=== PATIENT | female | born 1995 | race Caucasian/White ===

== ENCOUNTER → 2016-10-10 | Outpatient (REF) | payer OTHER | LOC: M LAB REF 16:27 | PROVIDERS: ATTEND Physician Assistant | DX: N39.0 Urinary tract infection, site not specified (principal) ==

== ENCOUNTER → 2017-03-20 | Outpatient (REF) | payer OTHER | LOC: M LAB REF 17:11 | PROVIDERS: ATTEND Physician Assistant Medical | DX: J02.9 Acute pharyngitis, unspecified (principal); Z72.51 High risk heterosexual behavior ==

== ENCOUNTER → 2017-05-25 | Outpatient (REF) | payer OTHER ==
[~2017-05-25] MED LIST: CETI10CH PO; FLUTISP; GABA-283 PO
== END ==
LOC: M LAB REF 17:00
PROVIDERS: ATTEND Advanced Practice Midwife
DX: Z11.3 Encounter for screening for infections with a predominantly sexual mode of transmission (principal)

== ENCOUNTER 2017-06-18 20:03 | Emergency (ER) | payer BC, OTHER ==
[~2017-06-18] VITALS: Ht 175.3 cm; Wt 86.4 kg
[2017-06-18] MEDS ORDERED: FLUTISP (20:15)
[2017-06-18] MEDS ORDERED: GABA-283 PO (20:15)
[2017-06-18] MEDS ORDERED: CETI10CH PO (20:15)
[2017-06-18] MEDS ORDERED: NS 1,000 ML IV ONE (21:15)
[2017-06-18 21:38] LABS: BASO # 0.1 K/mm3 (0.0-0.2); BASO % 0.9 % (0.0-1.0); EOS # 0.4 K/mm3 (0.0-0.50); EOS % 5.2 % (0.0-3.0); LARGE UNSTAINED CELL # 0.2 K/mm3 (0.0-0.4); LYMPH # 2.6 K/mm3 (1.5-6.5); LYMPH % 32.5 % (24.0-44.0); MEAN CORPUSCULAR HEMOGLOBIN 30.8 pg (27.0-33.0); MEAN CORPUSCULAR HGB CONC 34.5 g/dl (32.0-36.5); MEAN CORPUSCULAR VOLUME 89.3 fl (80.0-96.0); MONO # 0.5 K/mm3 (0.0-0.8); MONO % 6.6 % (0.0-5.0); NEUTROPHILS % 52.8 % (36.0-66.0); PLATELET COUNT, AUTOMATED 233 k/mm3 (150-450); RED CELL DISTRIBUTION WIDTH 12.2 % (11.5-14.5); WHITE BLOOD COUNT 7.5 K/mm3 (4.0-10.0)
[2017-06-18 21:45] LABS: INR 1.01
[2017-06-18 21:50] LABS: CONTROL LINE UCG INT CTR LINE PRESENT
[2017-06-18 21:52] LABS: CONTROL LINE HCG INT CTR LINE PRESENT
[2017-06-18 22:03] LABS: ALBUMIN 3.8 GM/DL (3.2-5.2); ALBUMIN/GLOBULIN RATIO 0.93 (1.00-1.93); ALKALINE PHOSPHATASE 54 U/L (45-117); ALT/SGPT 25 U/L (12-78); ANION GAP 4 MEQ/L (8-16); BILIRUBIN,DIRECT 0.1 MG/DL (0.0-0.2); BILIRUBIN,TOTAL 0.5 MG/DL (0.2-1.0); BLOOD UREA NITROGEN 8 MG/DL (7-18); CALCIUM LEVEL 8.6 MG/DL (8.5-10.1); CARBON DIOXIDE LEVEL 29 MEQ/L (21-32); CHLORIDE LEVEL 105 MEQ/L (98-107); CREATININE FOR GFR 0.67 MG/DL (0.55-1.02); FREE T4 1.03 NG/DL (0.76-1.46); GLOMERULAR FILTRATION RATE > 60.0 (>60); GLUCOSE, FASTING 86 MG/DL (70-105); POTASSIUM SERUM 3.4 MEQ/L (3.5-5.1); SODIUM LEVEL 138 MEQ/L (136-145); TOTAL PROTEIN 7.9 GM/DL (6.4-8.2)
[2017-06-18 22:09] LABS: AST/SGOT 20 U/L (15-37)
[2017-06-18] MEDS ORDERED: ONDANSETRON 4MG/2ML VIAL (J2405) IV ONE (22:15)
[2017-06-18] MEDS ORDERED: MORPHINE 4 MG/ML 1ML SYRINGE IV ONE (22:15)
[2017-06-18] MEDS ORDERED: diphenhydrAMINE INJ 50MG/ML VIAL (J1200) IV STA (22:50)
[2017-06-18] MEDS ORDERED: ISOVUE-370 76% 100ML VIAL (Q9967) As Ordered ONE (23:07)
--- NOTE | 2017-06-18 23:40 | REPUSA ---
CT angiogram of the chest Clinical statement: Chest pain and shortness of breath. Technique: Multiple axial CT images were obtained from the thoracic inlet through the upper abdomen a fter a bolus administration of nonionic intravenous contrast. Coronal and sagittal reconstructions we re also obtained. No comparison is available. Findings: The pulmonary arteries are well-opacified with contrast, with no intraluminal filling defec ts to suggest embolism. The thoracic aorta is unremarkable. Thyroid gland is within normal limits. Th ere is no thoracic lymphadenopathy. There are no pericardial or pleural effusions. The lungs are van r. Limited imaging of the upper abdomen is unremarkable. There are no suspicious osseous lesions. Impression: Unremarkable CT examination of the chest. No evidence of pulmonary embolism.
[2017-06-19] MEDS ORDERED: NORCO 5/325MG TABLET (BULK FOR ED) PO ONE
[2017-06-19 00:03] VITALS: BP 136/72
--- NOTE | 2017-06-19 05:52 | ECGEPIP ---
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 RBBB NO PRIORS Electronically Signed On 06-19-2017 5:52:50 EDT by Miguel Driscoll
--- NOTE | 2017-06-19 07:41 | REP ---
PA and lateral chest: There are no comparisons. The lung oquendo are clear. The cardiac size is normal The herson, mediastinum, and bony thorax are unremarkable. Impression: Negative PA and lateral chest. Signed by Hardik Wetzel MD 06/19/2017 07:32 A
== END 2017-06-19 00:05 | disposition home or self-care (01) ==
LOC: M ED 20:03
DX: R07.89 Other chest pain (principal); R06.02 Shortness of breath
CPT/HCPCS: 36415; 71020; 71275; 80048; 80076; 81001; 82550; 82553; 83690; 84439; 84443; 84703; 85025; 85379; 85610; 85730; 93005; 96374; 96375; 99284; J1200; J2405; Q9967

== ENCOUNTER → 2017-08-15 | Outpatient (REF) | payer OTHER | LOC: M LAB REF 17:56 | PROVIDERS: ATTEND Advanced Practice Midwife | DX: Z12.4 Encounter for screening for malignant neoplasm of cervix (principal) ==

== ENCOUNTER 2017-11-24 14:56 | Day surgery (SDC) | payer OTHER ==
[2017-11-24 16:50] LABS: KETONE, URINE AUTO RFX NEGATIVE (NEGATIVE); NITRITE, URINE AUTO RFX NEGATIVE (NEGATIVE); RBC, URINE AUTO RFX 6 /HPF (0-3); SPECIFIC GRAVITY UR AUTO RFX 1.004 (1.002-1.035); SQUAM EPITHELIAL CELL UR AURFX 1 /HPF (0-6)
[2017-11-24 16:57] LABS: LEUKOCYTE ESTERASE UR AUTO RFX 3+ (NEGATIVE); WBC, URINE AUTO RFX 29 /HPF (0-3)
[2017-11-24 16:58] LABS: BASO # 0.1 10^3/uL (0.0-0.2); BASO % 0.4 % (0.0-1.0); EOS # 0.1 10^3/uL (0.0-0.50); EOS % 0.3 % (0.0-3.0); HEMATOCRIT 39.5 % (36.0-47.0); HEMOGLOBIN 13.5 g/dl (12.0-16.0); IMMATURE GRANULOCYTE % 0.6 % (0-3.0); LYMPH # 1.7 10^3/uL (1.5-6.5); LYMPH % 8.9 % (24.0-44.0); MEAN CORPUSCULAR HEMOGLOBIN 30.4 pg (27.0-33.0); MEAN CORPUSCULAR HGB CONC 34.2 g/dl (32.0-36.5); MONO # 1.4 10^3/uL (0.0-0.8); MONO % 7.4 % (0.0-5.0); NEUTROPHILS # 15.5 10^3/uL (1.8-7.7); NEUTROPHILS % 82.4 % (36.0-66.0); PLATELET COUNT, AUTOMATED 248 10^3/uL (150-450); RED BLOOD COUNT 4.44 10^6/uL (4.00-5.40); RED CELL DISTRIBUTION WIDTH 12.3 % (11.5-14.5); WHITE BLOOD COUNT 18.8 10^3/uL (4.0-10.0)
[2017-11-24] MEDS: NS 1,000 ML IV (17:02)
[2017-11-24] MEDS: ONDANSETRON 4MG/2ML VIAL (J2405) IV ×2 (17:02→18:58)
[2017-11-24] MEDS: MORPHINE 4 MG/ML 1ML VIAL (J2270) IV (17:05)
[2017-11-24 17:21] LABS: CONTROL LINE HCG INT CTR LINE PRESENT; HCG, SERUM QUALITATIVE NEGATIVE (NEGATIVE)
[2017-11-24 17:29] LABS: ALBUMIN 3.8 GM/DL (3.2-5.2); ALKALINE PHOSPHATASE 62 U/L (45-117); ALT/SGPT 17 U/L (12-78); AMYLASE 38 U/L (25-115); ANION GAP 8 MEQ/L (8-16); AST/SGOT 14 U/L (7-37); BILIRUBIN,DIRECT 0.3 MG/DL (0.0-0.2); BLOOD UREA NITROGEN 8 MG/DL (7-18); CALCIUM LEVEL 8.2 MG/DL (8.5-10.1); CARBON DIOXIDE LEVEL 25 MEQ/L (21-32); CHLORIDE LEVEL 106 MEQ/L (98-107); CREATININE FOR GFR 0.74 MG/DL (0.55-1.30); GLOMERULAR FILTRATION RATE > 60.0 (>60); GLUCOSE, FASTING 84 MG/DL (70-100); LIPASE 68 U/L (73-393); POTASSIUM SERUM 3.7 MEQ/L (3.5-5.1); SODIUM LEVEL 139 MEQ/L (136-145); TOTAL PROTEIN 7.6 GM/DL (6.4-8.2)
[2017-11-24] MEDS ORDERED: ISOVUE-370 76% 100ML VIAL (Q9967) As Ordered (17:31)
[2017-11-24] MEDS: HYDROmorphone HCL 1 MG/ML SYRINGE (J1170) IV ×2 (19:01→20:52)
[2017-11-24] MEDS: LR 1,000 ML IV ×2 (20:52→23:15)
[2017-11-24] MEDS ORDERED: ZOSYN 3.375 GM VIAL (J2543) As Ordered (21:49)
[2017-11-24] MEDS ORDERED: SUCCINYLCHOLINE 100 MG/5 ML SYRINGE (J0330) As Ordered (21:50)
[2017-11-24] MEDS ORDERED: PROPOFOL 200 MG/20 ML VIAL As Ordered (21:50)
[2017-11-24] MEDS ORDERED: LIDOCAINE 2% INJ 100 MG/5 ML SDV (FOR ANES.) As Ordered (21:50)
[2017-11-24] MEDS ORDERED: ONDANSETRON 4MG/2ML VIAL (J2405) As Ordered (21:50)
[2017-11-24] MEDS ORDERED: ROCURONIUM BROMIDE 50 MG/5 ML VIAL As Ordered (21:50)
[2017-11-24] MEDS ORDERED: MIDAZOLAM INJ 2 MG/2 ML VIAL (J2250) As Ordered (21:51)
[2017-11-24] MEDS ORDERED: fentaNYL 250 MCG/5 ML INJECTION (J3010) As Ordered (21:51)
[2017-11-24] MEDS ORDERED: KETOROLAC 60 MG/2 ML VIAL (J1885) As Ordered (21:57)
[2017-11-24] MEDS ORDERED: METOCLOPRAMIDE INJ 10MG/2ML VIAL (J2765) As Ordered (21:57)
[2017-11-24] MEDS ORDERED: ACETAMINOPHEN TAB 650MG DOSE (2X325MG) PO (22:00)
[2017-11-24] MEDS ORDERED: ONDANSETRON 4MG/2ML VIAL (J2405) IV ×2 (22:00→23:15)
[2017-11-24] MEDS: BUPIVACAINE/EPIN 0.5% 30 ML VIAL As Ordered (22:28)
[2017-11-24] MEDS ORDERED: NEOSTIGMINE 10 MG/10 ML VIAL (J2710) As Ordered (22:32)
[2017-11-24] MEDS ORDERED: GLYCOPYRROLATE INJ 0.2 MG/ML 2 ML VIAL As Ordered (22:32)
[2017-11-24] MEDS ORDERED: PERCOCET 5MG/325MG TAB As Ordered (23:05)
[2017-11-24] MEDS: PERCOCET 5MG/325MG TAB PO ×2 (23:07→23:39)
[2017-11-24] MEDS ORDERED: fentaNYL 100 MCG/2 ML INJECTION (J3010) IV (23:15)
[2017-11-24] MEDS ORDERED: METOCLOPRAMIDE INJ 10MG/2ML VIAL (J2765) IV (23:15)
[2017-11-24] MEDS ORDERED: MEPERIDINE INJ 25 MG/ML VIAL (J2175) As Ordered (23:17)
[2017-11-24] MEDS: MEPERIDINE INJ 25 MG/ML VIAL (J2175) IV ×2 (23:20→23:35)
[2017-11-25] MEDS: MORPHINE 4 MG/ML 1ML VIAL (J2270) IV (01:38)
[2017-11-25] MEDS: NORCO, ANEXSIA 5/325MG TABLET (HYDROcodone/ACETAMINOPHEN) PO ×2 (04:00→10:35)
[2017-11-25] MEDS: PIPERACILLIN/TAZOBACTAM SOD 3.375 GM in APPROPRIATE DILUENT 1 EA IV ×2 (04:00→10:00)
[2017-11-25] MEDS ORDERED: HEPARIN SOD (PORCINE) 5000 UNITS/ML VIAL As Ordered (06:22)
[2017-11-25] MEDS: LR 1,000 ML IV (06:39)
[2017-11-25] MEDS: HEPARIN SOD (PORCINE) 5000 UNITS/ML VIAL SC (06:39)
[2017-11-25 06:52] LABS: HEMATOCRIT 32.5 % (36.0-47.0); MEAN CORPUSCULAR HEMOGLOBIN 30.9 pg (27.0-33.0); MEAN CORPUSCULAR HGB CONC 34.5 g/dl (32.0-36.5); MEAN CORPUSCULAR VOLUME 89.8 fl (80.0-96.0); PLATELET COUNT, AUTOMATED 227 10^3/uL (150-450); RED BLOOD COUNT 3.62 10^6/uL (4.00-5.40); RED CELL DISTRIBUTION WIDTH 12.7 % (11.5-14.5); WHITE BLOOD COUNT 16.2 10^3/uL (4.0-10.0)
[2017-11-25 07:01] LABS: HEMOGLOBIN 11.2 g/dl (12.0-16.0)
[2017-11-25] MEDS: KETOROLAC 30 MG/ML VIAL (J1885) IV (08:19)
[2017-11-25] MEDS: SENOKOT S TAB PO (08:19)
== END 2017-11-25 10:25 | disposition home or self-care (01) ==
LOC: M SDC 11-25 10:25 → M ED 14:56 → M SDC 19:50 → M PED 23:50
DX: K35.80 Unspecified acute appendicitis (principal); E66.9 Obesity, unspecified; Z88.8 Allergy status to other drugs, medicaments and biological substances; Z79.899 Other long term (current) drug therapy; Z86.718 Personal history of other venous thrombosis and embolism
CPT/HCPCS: 44970

== ENCOUNTER 2017-11-27 16:45 | Emergency (ER) | payer BC, OTHER ==
[2017-11-27 17:18] LABS: KETONE, URINE AUTO RFX NEGATIVE (NEGATIVE); LEUKOCYTE ESTERASE UR AUTO RFX NEGATIVE (NEGATIVE); NITRITE, URINE AUTO RFX NEGATIVE (NEGATIVE); RBC, URINE AUTO RFX 7 /HPF (0-3); SPECIFIC GRAVITY UR AUTO RFX 1.005 (1.002-1.035); SQUAM EPITHELIAL CELL UR AURFX 1 /HPF (0-6); WBC, URINE AUTO RFX 0 /HPF (0-3)
[2017-11-27] MEDS: MORPHINE 2 MG/ML 1ML SYRINGE (J2270) IV (18:19)
[2017-11-27] MEDS: NS 1,000 ML IV (18:19)
[2017-11-27 18:36] LABS: BASO % 0.5 % (0.0-1.0); EOS # 0.2 10^3/uL (0.0-0.50); HEMATOCRIT 34.8 % (36.0-47.0); IMMATURE GRANULOCYTE % 0.2 % (0-3.0); LYMPH # 1.3 10^3/uL (1.5-6.5); LYMPH % 21.4 % (24.0-44.0); MEAN CORPUSCULAR HEMOGLOBIN 30.5 pg (27.0-33.0); MEAN CORPUSCULAR HGB CONC 34.5 g/dl (32.0-36.5); MEAN CORPUSCULAR VOLUME 88.5 fl (80.0-96.0); MONO # 0.5 10^3/uL (0.0-0.8); MONO % 8.9 % (0.0-5.0); PLATELET COUNT, AUTOMATED 295 10^3/uL (150-450); RED BLOOD COUNT 3.93 10^6/uL (4.00-5.40); RED CELL DISTRIBUTION WIDTH 12.3 % (11.5-14.5); WHITE BLOOD COUNT 6.1 10^3/uL (4.0-10.0)
[2017-11-27 18:57] LABS: CONTROL LINE UCG INT CTR LINE PRESENT; ERYTHROCYTE SEDIMENTATION RATE 59 mm/hr (0-20); URINE PREG TEST NEGATIVE (NEGATIVE)
[2017-11-27 18:59] LABS: LACTIC ACID SEPSIS PROTOCOL 0.7 MMOL/L (0.4-2.0)
[2017-11-27 19:00] LABS: ALBUMIN 3.4 GM/DL (3.2-5.2); ALBUMIN/GLOBULIN RATIO 0.92 (1.00-1.93); ALKALINE PHOSPHATASE 55 U/L (45-117); ALT/SGPT 20 U/L (12-78); AMYLASE 34 U/L (25-115); ANION GAP 7 MEQ/L (8-16); AST/SGOT 18 U/L (7-37); BILIRUBIN,DIRECT 0.1 MG/DL (0.0-0.2); BILIRUBIN,TOTAL 0.3 MG/DL (0.2-1.0); BLOOD UREA NITROGEN 8 MG/DL (7-18); C REACTIVE PROTEIN QUANTITATIV 5.69 MG/DL (0.00-0.30); CALCIUM LEVEL 8.2 MG/DL (8.5-10.1); CARBON DIOXIDE LEVEL 27 MEQ/L (21-32); CHLORIDE LEVEL 104 MEQ/L (98-107); CPK CREATINE PHOSPHOKINASE 72 U/L (26-192); CREATININE FOR GFR 0.67 MG/DL (0.55-1.30); GLOMERULAR FILTRATION RATE > 60.0 (>60); GLUCOSE, FASTING 103 MG/DL (70-100); LIPASE 79 U/L (73-393); POTASSIUM SERUM 3.7 MEQ/L (3.5-5.1); SODIUM LEVEL 138 MEQ/L (136-145); TOTAL PROTEIN 7.1 GM/DL (6.4-8.2); TROPONIN I < 0.02 NG/ML (< 0.10)
[2017-11-27 19:06] LABS: MB/CK RELATIVE INDEX 1.38 (< OR =4); THYROID STIMULATING HORMONE 0.961 uIU/ML (0.358-3.740)
[2017-11-27] MEDS ORDERED: ISOVUE-370 76% 100ML VIAL (Q9967) As Ordered (19:08)
[2017-11-27] MEDS: METOCLOPRAMIDE INJ 10MG/2ML VIAL (J2765) IV (20:51)
[2017-11-27] MEDS: KETOROLAC 30 MG/ML VIAL (J1885) IV (20:52)
[2017-11-27] MEDS: diphenhydrAMINE INJ 50MG/ML VIAL (J1200) IV (20:52)
== END 2017-11-27 21:41 | disposition home or self-care (01) ==
LOC: M ED 16:45
DX: G89.18 Other acute postprocedural pain (principal); R10.9 Unspecified abdominal pain; Z90.89 Acquired absence of other organs; Z79.899 Other long term (current) drug therapy; Z91.89 Other specified personal risk factors, not elsewhere classified; Z88.1 Allergy status to other antibiotic agents
CPT/HCPCS: J1200

== ENCOUNTER 2018-01-11 22:07 | Emergency (ER) | payer BC, OTHER ==
[2018-01-11] MEDS ORDERED: NS 1,000 ML IV (23:15)
[2018-01-11] MEDS: dexameTHASONE 4 MG/ML 1ML VIAL (J1100) IM (23:30)
== END 2018-01-11 23:57 | disposition home or self-care (01) ==
LOC: M ED 22:07
DX: L29.9 Pruritus, unspecified (principal); F41.9 Anxiety disorder, unspecified; N83.209 Unspecified ovarian cyst, unspecified side
CPT/HCPCS: J1100

== ENCOUNTER 2018-03-01 03:36 | Inpatient (IN) | payer BC, OTHER ==
[2018-03-01] MEDS ORDERED: CHARCOAL ACTIVATED LIQUID 25 GM/120 ML BTL As Ordered (03:54)
[2018-03-01] MEDS: CHARCOAL ACTIVATED LIQUID 25 GM/120 ML BTL PO (04:02)
[2018-03-01 04:04] LABS: BASO # 0.1 10^3/uL (0.0-0.2); BASO % 0.7 % (0.0-1.0); EOS # 0.3 10^3/uL (0.0-0.50); EOS % 4.7 % (0.0-3.0); HEMATOCRIT 38.6 % (36.0-47.0); HEMOGLOBIN 13.1 g/dl (12.0-15.5); IMMATURE GRANULOCYTE % 0.1 % (0-3.0); LYMPH # 2.3 10^3/uL (1.5-6.5); LYMPH % 32.9 % (24.0-44.0); MEAN CORPUSCULAR HEMOGLOBIN 30.3 pg (27.0-33.0); MEAN CORPUSCULAR HGB CONC 33.9 g/dl (32.0-36.5); MEAN CORPUSCULAR VOLUME 89.4 fl (80.0-96.0); MONO # 0.7 10^3/uL (0.0-0.8); MONO % 9.7 % (0.0-5.0); NEUTROPHILS # 3.7 10^3/uL (1.8-7.7); NEUTROPHILS % 51.9 % (36.0-66.0); PLATELET COUNT, AUTOMATED 232 10^3/uL (150-450); RED BLOOD COUNT 4.32 10^6/uL (4.00-5.40); RED CELL DISTRIBUTION WIDTH 12.5 % (11.5-14.5)
[2018-03-01 04:36] LABS: ALBUMIN 3.7 GM/DL (3.2-5.2); ALKALINE PHOSPHATASE 63 U/L (45-117); ALT/SGPT 19 U/L (12-78); ANION GAP 5 MEQ/L (8-16); AST/SGOT 23 U/L (7-37); BILIRUBIN,DIRECT < 0.1 MG/DL (0.0-0.2); BILIRUBIN,TOTAL 0.3 MG/DL (0.2-1.0); BLOOD UREA NITROGEN 10 MG/DL (7-18); CALCIUM LEVEL 8.2 MG/DL (8.5-10.1); CARBON DIOXIDE LEVEL 28 MEQ/L (21-32); CHLORIDE LEVEL 106 MEQ/L (98-107); CPK CREATINE PHOSPHOKINASE 128 U/L (26-192); CREATININE FOR GFR 0.61 MG/DL (0.55-1.30); ETHYL ALCOHOL (ETHANOL) 0.004 % (0.000-0.010); GLOMERULAR FILTRATION RATE > 60.0 (>60); GLUCOSE, FASTING 92 MG/DL (70-100); POTASSIUM SERUM 4.1 MEQ/L (3.5-5.1); SALICYLATE LEVEL < 1.7 MG/DL (5.0-30.0); SODIUM LEVEL 139 MEQ/L (136-145); TOTAL PROTEIN 7.4 GM/DL (6.4-8.2)
[2018-03-01 04:51] LABS: ACETAMINOPHEN LEVEL < 2.0 UG/ML (10.0-30.0)
[2018-03-01 07:13] LABS: AMPHETAMINES LEVEL URINE NEGATIVE (NEGATIVE); BARBITURATES URINE NEGATIVE (NEGATIVE); BENZODIAZEPINES URINE POSITIVE (NEGATIVE); CANNABINOIDS URINE NEGATIVE (NEGATIVE); COCAINE METABOLITE URINE NEGATIVE (NEGATIVE); METHADONE URINE NEGATIVE (NEGATIVE); OPIATES URINE NEGATIVE (NEGATIVE); PHENCYCLIDINE URINE NEGATIVE (NEGATIVE)
[2018-03-01] MEDS ORDERED: MAALOX 30 ML SUSP *UDC PO (12:15)
[2018-03-01 13:01] LABS: CONTROL LINE HCG INT CTR LINE PRESENT; HCG, SERUM QUALITATIVE NEGATIVE (NEGATIVE)
[2018-03-01] MEDS: IBUPROFEN 400 MG TAB PO (20:27)
[2018-03-01] MEDS: RAMELTEON 8 MG TAB (ROZEREM) PO (21:00)
[2018-03-01] MEDS: ONDANSETRON 4 MG ORAL DISINTEGRATING TAB (Q0162 PER 1MG) PO (21:17)
[2018-03-02] MEDS: EXCEDRIN MIGRAINE TABLET PO (10:30)
[2018-03-02] MEDS: RIZATRIPTAN BENZOATE 10 MG TAB PO (11:35)
[2018-03-02] MEDS: FLUoxetine 20 MG CAP PO (16:19)
[2018-03-02] MEDS: diphenhydrAMINE CREAM 30GM TOP (18:21)
[2018-03-02] MEDS: IBUPROFEN 400 MG TAB PO (19:47)
[2018-03-02] MEDS: RAMELTEON 8 MG TAB (ROZEREM) PO (21:52)
[2018-03-02] MEDS: clonazePAM 0.5 MG TAB PO (21:52)
[2018-03-03] MEDS: IBUPROFEN 400 MG TAB PO ×3 (05:14→22:00)
[2018-03-03] MEDS: RIZATRIPTAN BENZOATE 10 MG TAB PO ×3 (05:15→20:05)
[2018-03-03 06:12] LABS: FREE THYROXINE INDEX 2.4 % (1.3-4.8); T UPTAKE 35 % (30-39); THYROXINE (T4) 6.8 UG/DL (4.5-12.0)
[2018-03-03] MEDS: FLUoxetine 20 MG CAP PO (08:50)
[2018-03-03] MEDS: clonazePAM 0.5 MG TAB PO ×2 (08:50→20:05)
[2018-03-03] MEDS: EXCEDRIN MIGRAINE TABLET PO ×2 (08:52→17:12)
[2018-03-03] MEDS: QUEtiapine FUMARATE 25 MG TAB PO (21:57)
[2018-03-04] MEDS: IBUPROFEN 400 MG TAB PO (05:30)
[2018-03-04] MEDS: clonazePAM 0.5 MG TAB PO ×2 (08:01→20:38)
[2018-03-04] MEDS: FLUoxetine 20 MG CAP PO (08:01)
[2018-03-04] MEDS: RIZATRIPTAN BENZOATE 10 MG TAB PO ×2 (08:02→20:39)
[2018-03-04] MEDS: EXCEDRIN MIGRAINE TABLET PO ×2 (08:03→15:05)
[2018-03-04] MEDS: MELOXICAM (MOBIC) 7.5 MG TAB PO (10:15)
[2018-03-04] MEDS: LIDOCAINE 5% (LIDODERM) PATCH TD (14:35)
[2018-03-04] MEDS: ACETAMINOPHEN TAB 650MG DOSE (2X325MG) PO ×2 (15:05→22:08)
[2018-03-04] MEDS: MOM 30ML SUSPENSION UDC PO (15:07)
[2018-03-04] MEDS: GABAPENTIN 100 MG CAP PO (20:38)
[2018-03-04] MEDS: QUEtiapine FUMARATE 25 MG TAB PO (22:05)
[2018-03-04] MEDS: **NOTE PATIENT COMMENT** MISC XX (22:05)
[2018-03-05] MEDS: LIDOCAINE 5% (LIDODERM) PATCH TD (08:48)
[2018-03-05] MEDS: FLUoxetine 20 MG CAP PO (08:48)
[2018-03-05] MEDS: GABAPENTIN 100 MG CAP PO (08:49)
[2018-03-05] MEDS: clonazePAM 0.5 MG TAB PO ×2 (08:49→20:48)
[2018-03-05] MEDS: MELOXICAM (MOBIC) 7.5 MG TAB PO (08:49)
[2018-03-05] MEDS: RIZATRIPTAN BENZOATE 10 MG TAB PO (11:26)
[2018-03-05 14:30] LABS: HEMATOCRIT 41.6 % (36.0-47.0); HEMOGLOBIN 13.1 g/dl (12.0-15.5); MEAN CORPUSCULAR HEMOGLOBIN 30.3 pg (27.0-33.0); MEAN CORPUSCULAR HGB CONC 31.5 g/dl (32.0-36.5); MEAN CORPUSCULAR VOLUME 96.1 fl (80.0-96.0); PLATELET COUNT, AUTOMATED 162 10^3/uL (150-450); RED BLOOD COUNT 4.33 10^6/uL (4.00-5.40); RED CELL DISTRIBUTION WIDTH 12.2 % (11.5-14.5); WHITE BLOOD COUNT 4.4 10^3/uL (4.0-10.0)
[2018-03-05 14:47] LABS: ALBUMIN 3.9 GM/DL (3.2-5.2); ALBUMIN/GLOBULIN RATIO 1.15 (1.00-1.93); ALKALINE PHOSPHATASE 60 U/L (45-117); ALT/SGPT 21 U/L (12-78); ANION GAP 5 MEQ/L (8-16); AST/SGOT 18 U/L (7-37); BILIRUBIN,TOTAL 0.3 MG/DL (0.2-1.0); BLOOD UREA NITROGEN 8 MG/DL (7-18); CALCIUM LEVEL 8.6 MG/DL (8.5-10.1); CARBON DIOXIDE LEVEL 29 MEQ/L (21-32); CHLORIDE LEVEL 107 MEQ/L (98-107); CREATININE FOR GFR 0.63 MG/DL (0.55-1.30); GLOMERULAR FILTRATION RATE > 60.0 (>60); GLUCOSE, FASTING 96 MG/DL (70-100); SODIUM LEVEL 141 MEQ/L (136-145); TOTAL PROTEIN 7.3 GM/DL (6.4-8.2)
[2018-03-05 14:52] LABS: PROLACTIN 9.6 NG/ML
[2018-03-05] MEDS: EXCEDRIN MIGRAINE TABLET PO (15:48)
[2018-03-05] MEDS: ONDANSETRON 4 MG ORAL DISINTEGRATING TAB (Q0162 PER 1MG) PO (17:59)
[2018-03-05] MEDS: QUEtiapine FUMARATE 25 MG TAB PO (20:48)
[2018-03-05] MEDS: ACETAMINOPHEN TAB 650MG DOSE (2X325MG) PO (20:49)
[2018-03-05] MEDS: **NOTE PATIENT COMMENT** MISC XX (21:00)
[2018-03-06] MEDS: traZODone 50 MG TAB PO (01:51)
[2018-03-06] MEDS: ACETAMINOPHEN TAB 650MG DOSE (2X325MG) PO (05:04)
[2018-03-06] MEDS: MELOXICAM (MOBIC) 7.5 MG TAB PO (09:10)
[2018-03-06] MEDS: LIDOCAINE 5% (LIDODERM) PATCH TD (09:10)
[2018-03-06] MEDS: clonazePAM 0.5 MG TAB PO (09:10)
[2018-03-06] MEDS: FLUoxetine 20 MG CAP PO (09:10)
== END 2018-03-06 15:20 | disposition home or self-care (01) | DRG 751 ==
LOC: M ED 03:36 → M ED INP 12:10 → M PSY 13:31
DX: F33.2 Major depressive disorder, recurrent severe without psychotic features (principal); F41.0 Panic disorder [episodic paroxysmal anxiety]; F41.1 Generalized anxiety disorder; M25.572 Pain in left ankle and joints of left foot; G43.909 Migraine, unspecified, not intractable, without status migrainosus; R94.6 Abnormal results of thyroid function studies; Z88.1 Allergy status to other antibiotic agents; Z91.048 Other nonmedicinal substance allergy status; Z79.899 Other long term (current) drug therapy; W01.190A Fall on same level from slipping, tripping and stumbling with subsequent striking against furniture, initial encounter; Y92.239 Unspecified place in hospital as the place of occurrence of the external cause; Y93.01 Activity, walking, marching and hiking; Z91.5 Personal history of self-harm

== ENCOUNTER 2018-03-12 13:48 | Emergency (ER) | payer OTHER, BC ==
[2018-03-12] MEDS: diphenhydrAMINE INJ 50MG/ML VIAL (J1200) IV (15:44)
[2018-03-12] MEDS: NS 1,000 ML IV (15:44)
[2018-03-12] MEDS: KETOROLAC 30 MG/ML VIAL (J1885) IV (15:44)
[2018-03-12] MEDS: METOCLOPRAMIDE INJ 10MG/2ML VIAL (J2765) IV (15:45)
[2018-03-12] MEDS: ACETAMINOPHEN 325 MG TAB PO (16:43)
== END 2018-03-12 18:00 | disposition home or self-care (01) ==
LOC: M ED 13:48
DX: S00.83XA Contusion of other part of head, initial encounter (principal); S16.1XXA Strain of muscle, fascia and tendon at neck level, initial encounter; W01.0XXA Fall on same level from slipping, tripping and stumbling without subsequent striking against object, initial encounter; Y92.59 Other trade areas as the place of occurrence of the external cause; Y99.0 Civilian activity done for income or pay; R55 Syncope and collapse; G43.909 Migraine, unspecified, not intractable, without status migrainosus; Z79.899 Other long term (current) drug therapy; Z88.1 Allergy status to other antibiotic agents; Z88.8 Allergy status to other drugs, medicaments and biological substances; Z91.048 Other nonmedicinal substance allergy status
CPT/HCPCS: J1200

== ENCOUNTER 2018-03-17 15:51 | Inpatient (IN) | payer BC, OTHER ==
[2018-03-17 16:24] LABS: BASO % 0.7 % (0.0-1.0); EOS # 0.3 10^3/uL (0.0-0.50); EOS % 4.7 % (0.0-3.0); HEMATOCRIT 38.3 % (36.0-47.0); HEMOGLOBIN 12.9 g/dl (12.0-15.5); IMMATURE GRANULOCYTE % 0.2 % (0-3.0); LYMPH # 1.6 10^3/uL (1.5-6.5); LYMPH % 28.6 % (24.0-44.0); MEAN CORPUSCULAR HEMOGLOBIN 29.8 pg (27.0-33.0); MEAN CORPUSCULAR HGB CONC 33.7 g/dl (32.0-36.5); MEAN CORPUSCULAR VOLUME 88.5 fl (80.0-96.0); MONO # 0.4 10^3/uL (0.0-0.8); MONO % 7.7 % (0.0-5.0); NEUTROPHILS # 3.3 10^3/uL (1.8-7.7); NEUTROPHILS % 58.1 % (36.0-66.0); PLATELET COUNT, AUTOMATED 241 10^3/uL (150-450); RED BLOOD COUNT 4.33 10^6/uL (4.00-5.40); RED CELL DISTRIBUTION WIDTH 12.2 % (11.5-14.5); WHITE BLOOD COUNT 5.7 10^3/uL (4.0-10.0)
[2018-03-17 16:28] LABS: VENOUS BASE EXCESS -3.3 (-2.0-2.0); VENOUS HCO3 21.5 MEQ/L (23.0-27.0); VENOUS O2 SATURATION 97.8 % (60.0-80.0); VENOUS PARTIAL PRESSURE CO2 37.9 mmHg (38.0-50.0); VENOUS PARTIAL PRESSURE O2 99.7 mmHg (30.0-50.0); VENOUS PH 7.372 UNITS (7.330-7.430); VENOUS STANDARD HCO3 21.8 MEQ/L; VENOUS TOTAL CO2 22.7 MEQ/L (24.0-28.0)
[2018-03-17] MEDS: NS 1,000 ML IV ×4 (16:38→19:00)
[2018-03-17] MEDS: CHARCOAL ACTIVATED LIQUID 25 GM/120 ML BTL PO (16:38)
[2018-03-17 16:45] LABS: OSMOLALITY SERUM 302 MOSM/KG (275-295)
[2018-03-17 16:48] LABS: CONTROL LINE HCG INT CTR LINE PRESENT; HCG, SERUM QUALITATIVE NEGATIVE (NEGATIVE)
[2018-03-17 16:52] LABS: LACTIC ACID SEPSIS PROTOCOL 3.8 MMOL/L (0.4-2.0)
[2018-03-17 17:03] LABS: ACETAMINOPHEN LEVEL 57.3 UG/ML (10.0-30.0); ALBUMIN 3.8 GM/DL (3.2-5.2); ALBUMIN/GLOBULIN RATIO 1.06 (1.00-1.93); ALKALINE PHOSPHATASE 56 U/L (45-117); ALT/SGPT 19 U/L (12-78); ANION GAP 11 MEQ/L (8-16); AST/SGOT 15 U/L (7-37); BILIRUBIN,DIRECT 0.1 MG/DL (0.0-0.2); BILIRUBIN,TOTAL 0.3 MG/DL (0.2-1.0); BLOOD UREA NITROGEN 10 MG/DL (7-18); CALCIUM LEVEL 8.3 MG/DL (8.5-10.1); CARBON DIOXIDE LEVEL 23 MEQ/L (21-32); CHLORIDE LEVEL 107 MEQ/L (98-107); CPK CREATINE PHOSPHOKINASE 98 U/L (26-192); CREATININE FOR GFR 0.79 MG/DL (0.55-1.30); ETHYL ALCOHOL (ETHANOL) < 0.003 % (0.000-0.010); GLOMERULAR FILTRATION RATE > 60.0 (>60); GLUCOSE, FASTING 77 MG/DL (70-100); POTASSIUM SERUM 3.7 MEQ/L (3.5-5.1); SALICYLATE LEVEL < 1.7 MG/DL (5.0-30.0); SODIUM LEVEL 141 MEQ/L (136-145); TOTAL PROTEIN 7.4 GM/DL (6.4-8.2)
[2018-03-17] MEDS: D5W IV ×3 (18:28→23:20)
[2018-03-17] MEDS: ACETYLCYSTEINE IV ×3 (18:28→23:20)
[2018-03-17 18:36] LABS: INR 1.06; PROTHROMBIN TIME 13.9 SECONDS (12.4-14.5)
[2018-03-17 18:56] LABS: AMPHETAMINES LEVEL URINE NEGATIVE (NEGATIVE); BARBITURATES URINE NEGATIVE (NEGATIVE); BENZODIAZEPINES URINE NEGATIVE (NEGATIVE); CANNABINOIDS URINE NEGATIVE (NEGATIVE); COCAINE METABOLITE URINE NEGATIVE (NEGATIVE); METHADONE URINE NEGATIVE (NEGATIVE); OPIATES URINE NEGATIVE (NEGATIVE); PHENCYCLIDINE URINE NEGATIVE (NEGATIVE)
[2018-03-17 19:39] LABS: ACETAMINOPHEN LEVEL 22.4 UG/ML (10.0-30.0)
[2018-03-17] MEDS: CHLORHEXIDINE ORAL RINSE 0.12%/15ML 120ML BOTTLE MT ×2 (21:00)
[2018-03-17 21:08] LABS: ACETAMINOPHEN LEVEL 15.8 UG/ML (10.0-30.0); ALBUMIN 2.9 GM/DL (3.2-5.2); ALBUMIN/GLOBULIN RATIO 0.94 (1.00-1.93); ALKALINE PHOSPHATASE 43 U/L (45-117); ALT/SGPT 22 U/L (12-78); AST/SGOT 11 U/L (7-37); BILIRUBIN,DIRECT < 0.1 MG/DL (0.0-0.2); BILIRUBIN,TOTAL 0.3 MG/DL (0.2-1.0)
[2018-03-18] MEDS: HEPARIN SOD (PORCINE) 5000 UNITS/ML VIAL SC ×3 (00:45→14:11)
[2018-03-18] MEDS: NS 1,000 ML IV ×2 (00:46→05:00)
[2018-03-18 00:50] LABS: ACETAMINOPHEN LEVEL 4.1 UG/ML (10.0-30.0); ALBUMIN 2.9 GM/DL (3.2-5.2); ALBUMIN/GLOBULIN RATIO 0.97 (1.00-1.93); ALKALINE PHOSPHATASE 40 U/L (45-117); ALT/SGPT 25 U/L (12-78); AST/SGOT 13 U/L (7-37); BILIRUBIN,DIRECT < 0.1 MG/DL (0.0-0.2); BILIRUBIN,TOTAL 0.3 MG/DL (0.2-1.0); TOTAL PROTEIN 5.9 GM/DL (6.4-8.2)
[2018-03-18 05:10] LABS: ACETAMINOPHEN LEVEL < 2.0 UG/ML (10.0-30.0); ALBUMIN 2.8 GM/DL (3.2-5.2); ALBUMIN/GLOBULIN RATIO 0.93 (1.00-1.93); ALKALINE PHOSPHATASE 39 U/L (45-117); ALT/SGPT 17 U/L (12-78); AST/SGOT 12 U/L (7-37); BILIRUBIN,DIRECT 0.1 MG/DL (0.0-0.2); BILIRUBIN,TOTAL 0.5 MG/DL (0.2-1.0); TOTAL PROTEIN 5.8 GM/DL (6.4-8.2)
[2018-03-18 08:33] LABS: HEMOGLOBIN 11.3 g/dl (12.0-15.5); MEAN CORPUSCULAR HEMOGLOBIN 30.3 pg (27.0-33.0); MEAN CORPUSCULAR HGB CONC 34.2 g/dl (32.0-36.5); MEAN CORPUSCULAR VOLUME 88.5 fl (80.0-96.0); PLATELET COUNT, AUTOMATED 190 10^3/uL (150-450); RED BLOOD COUNT 3.73 10^6/uL (4.00-5.40); RED CELL DISTRIBUTION WIDTH 12.6 % (11.5-14.5); WHITE BLOOD COUNT 3.7 10^3/uL (4.0-10.0)
[2018-03-18 08:42] LABS: ACETAMINOPHEN LEVEL < 2.0 UG/ML (10.0-30.0); ALBUMIN 2.9 GM/DL (3.2-5.2); ALKALINE PHOSPHATASE 40 U/L (45-117); ALT/SGPT 15 U/L (12-78); AST/SGOT 11 U/L (7-37); BILIRUBIN,DIRECT 0.1 MG/DL (0.0-0.2); BILIRUBIN,TOTAL 0.5 MG/DL (0.2-1.0); TOTAL PROTEIN 5.8 GM/DL (6.4-8.2)
[2018-03-18 08:52] LABS: PARTIAL THROMBOPLASTIN TIME 32.2 SECONDS (26.8-37.9)
[2018-03-18 08:57] LABS: ANION GAP 7 MEQ/L (8-16); BLOOD UREA NITROGEN 5 MG/DL (7-18); CALCIUM LEVEL 7.1 MG/DL (8.5-10.1); CARBON DIOXIDE LEVEL 23 MEQ/L (21-32); CHLORIDE LEVEL 113 MEQ/L (98-107); CREATININE FOR GFR 0.58 MG/DL (0.55-1.30); GLOMERULAR FILTRATION RATE > 60.0 (>60); GLUCOSE, FASTING 80 MG/DL (70-100); POTASSIUM SERUM 3.8 MEQ/L (3.5-5.1); SODIUM LEVEL 143 MEQ/L (136-145)
[2018-03-18] MEDS: CHLORHEXIDINE ORAL RINSE 0.12%/15ML 120ML BOTTLE MT (09:00)
[2018-03-18 09:17] LABS: INR 1.25; PROTHROMBIN TIME 15.9 SECONDS (12.4-14.5)
[2018-03-18] MEDS: METOCLOPRAMIDE INJ 10MG/2ML VIAL (J2765) IV (10:40)
[2018-03-18] MEDS: KETOROLAC 30 MG/ML VIAL (J1885) IV (10:40)
[2018-03-18] MEDS: RIZATRIPTAN BENZOATE 10 MG TAB PO (12:36)
[2018-03-18] MEDS: IBUPROFEN 400 MG TAB PO (19:45)
== END 2018-03-18 21:35 | DRG 812 ==
LOC: M ED 15:51 → M ED INP 18:31 → M ICU 19:26
DX: T39.1X4A Poisoning by 4-Aminophenol derivatives, undetermined, initial encounter (principal); F33.2 Major depressive disorder, recurrent severe without psychotic features; F41.1 Generalized anxiety disorder; F41.0 Panic disorder [episodic paroxysmal anxiety]; Z91.5 Personal history of self-harm; Z79.899 Other long term (current) drug therapy; Z91.048 Other nonmedicinal substance allergy status; Z88.1 Allergy status to other antibiotic agents

== ENCOUNTER 2018-03-18 21:34 | Inpatient (IN) | payer OTHER, BC ==
[~2018-03-18 21:34] MED LIST changes: +ACETAMINOPHEN TAB 650MG DOSE (2X325MG) PO; -CETI10CH PO; -FLUTISP; -GABA-283 PO; +IBUPROFEN 400 MG TAB PO; +RAMELTEON 8 MG TAB (ROZEREM) PO
[2018-03-18] MEDS ORDERED: LIDOCAINE 5% (LIDODERM) PATCH TD (22:45)
[2018-03-18] MEDS: QUEtiapine FUMARATE 25 MG TAB PO (23:17)
[2018-03-19] MEDS: CETIRIZINE (ZyrTEC) 10 MG TAB PO (09:43)
[2018-03-19] MEDS: SERTRALINE HCL 50 MG TAB PO (09:43)
[2018-03-19] MEDS: GABAPENTIN 100 MG CAP PO ×3 (09:43→21:13)
[2018-03-19] MEDS: MELOXICAM (MOBIC) 7.5 MG TAB PO ×2 (09:43→21:12)
[2018-03-19] MEDS: FLUTICASONE PROP 0.05% NASAL SPRAY 16 GM (FLONASE) (10:13)
[2018-03-19] MEDS: LIDOCAINE 5% (LIDODERM) PATCH TD (10:15)
[2018-03-19 10:17] LABS: HEMATOCRIT 34.3 % (36.0-47.0); HEMOGLOBIN 12.1 g/dl (12.0-15.5); MEAN CORPUSCULAR HEMOGLOBIN 30.7 pg (27.0-33.0); MEAN CORPUSCULAR HGB CONC 35.3 g/dl (32.0-36.5); MEAN CORPUSCULAR VOLUME 87.1 fl (80.0-96.0); PLATELET COUNT, AUTOMATED 246 10^3/uL (150-450); RED BLOOD COUNT 3.94 10^6/uL (4.00-5.40); RED CELL DISTRIBUTION WIDTH 12.1 % (11.5-14.5); WHITE BLOOD COUNT 6.6 10^3/uL (4.0-10.0)
[2018-03-19 11:37] LABS: ALBUMIN 3.7 GM/DL (3.2-5.2); ALBUMIN/GLOBULIN RATIO 1.16 (1.00-1.93); ALKALINE PHOSPHATASE 53 U/L (45-117); ALT/SGPT 21 U/L (12-78); ANION GAP 9 MEQ/L (8-16); AST/SGOT 16 U/L (7-37); BILIRUBIN,TOTAL 0.6 MG/DL (0.2-1.0); BLOOD UREA NITROGEN 8 MG/DL (7-18); CALCIUM LEVEL 8.5 MG/DL (8.5-10.1); CARBON DIOXIDE LEVEL 24 MEQ/L (21-32); CHLORIDE LEVEL 109 MEQ/L (98-107); CREATININE FOR GFR 0.63 MG/DL (0.55-1.30); GLOMERULAR FILTRATION RATE > 60.0 (>60); GLUCOSE, FASTING 86 MG/DL (70-100); LIPASE 145 U/L (73-393); SODIUM LEVEL 142 MEQ/L (136-145); TOTAL PROTEIN 6.9 GM/DL (6.4-8.2)
[2018-03-19 12:31] LABS: KETONE, URINE AUTO RFX NEGATIVE (NEGATIVE); LEUKOCYTE ESTERASE UR AUTO RFX NEGATIVE (NEGATIVE); NITRITE, URINE AUTO RFX NEGATIVE (NEGATIVE); RBC, URINE AUTO RFX 1 /HPF (0-3); SPECIFIC GRAVITY UR AUTO RFX 1.003 (1.002-1.035); SQUAM EPITHELIAL CELL UR AURFX 0 /HPF (0-6); WBC, URINE AUTO RFX 1 /HPF (0-3)
[2018-03-19] MEDS ORDERED: IBUPROFEN 600 MG TAB PO (14:00)
[2018-03-19] MEDS: **NOTE PATIENT COMMENT** MISC XX (21:00)
[2018-03-19] MEDS: traZODone 50 MG TAB PO (21:13)
[2018-03-20] MEDS: MAALOX 30 ML SUSP *UDC PO (06:15)
[2018-03-20] MEDS: SERTRALINE HCL 50 MG TAB PO (08:49)
[2018-03-20] MEDS: FLUTICASONE PROP 0.05% NASAL SPRAY 16 GM (FLONASE) (08:49)
[2018-03-20] MEDS: LIDOCAINE 5% (LIDODERM) PATCH TD (08:49)
[2018-03-20] MEDS: GABAPENTIN 100 MG CAP PO ×3 (08:49→21:29)
[2018-03-20] MEDS: MELOXICAM (MOBIC) 7.5 MG TAB PO ×2 (08:49→21:29)
[2018-03-20] MEDS: CETIRIZINE (ZyrTEC) 10 MG TAB PO (08:50)
[2018-03-20] MEDS: EXCEDRIN MIGRAINE TABLET PO (15:57)
[2018-03-20] MEDS: hydrOXYzine 25 MG TAB PO (15:57)
[2018-03-20] MEDS: **NOTE PATIENT COMMENT** MISC XX (21:28)
[2018-03-20] MEDS: traZODone 100 MG TAB PO (21:50)
[2018-03-21] MEDS: FLUTICASONE PROP 0.05% NASAL SPRAY 16 GM (FLONASE) (09:04)
[2018-03-21] MEDS: CETIRIZINE (ZyrTEC) 10 MG TAB PO (09:06)
[2018-03-21] MEDS: MELOXICAM (MOBIC) 7.5 MG TAB PO ×2 (09:06→21:31)
[2018-03-21] MEDS: GABAPENTIN 100 MG CAP PO ×3 (09:06→21:32)
[2018-03-21] MEDS: SERTRALINE HCL 50 MG TAB PO ×2 (09:06→13:00)
[2018-03-21] MEDS: LIDOCAINE 5% (LIDODERM) PATCH TD (12:24)
[2018-03-21] MEDS: EXCEDRIN MIGRAINE TABLET PO (12:24)
[2018-03-21] MEDS: hydrOXYzine 25 MG TAB PO ×2 (14:39→19:16)
[2018-03-21] MEDS: traZODone 100 MG TAB PO (21:31)
[2018-03-21] MEDS: **NOTE PATIENT COMMENT** MISC XX (21:32)
[2018-03-22] MEDS: SERTRALINE HCL 50 MG TAB PO (08:33)
[2018-03-22] MEDS: CETIRIZINE (ZyrTEC) 10 MG TAB PO (08:33)
[2018-03-22] MEDS: FLUTICASONE PROP 0.05% NASAL SPRAY 16 GM (FLONASE) (08:33)
[2018-03-22] MEDS: MELOXICAM (MOBIC) 7.5 MG TAB PO ×2 (08:33→21:09)
[2018-03-22] MEDS: GABAPENTIN 100 MG CAP PO ×3 (08:33→21:09)
[2018-03-22] MEDS: OLANZapine ORAL DISINTEGRATING TAB 5MG PO ×2 (09:51→16:45)
[2018-03-22] MEDS: busPIRone 5 MG TAB PO ×2 (09:51→21:09)
[2018-03-22] MEDS: hydrOXYzine 25 MG TAB PO (21:09)
[2018-03-22] MEDS: traZODone 100 MG TAB PO (21:09)
[2018-03-22] MEDS: **NOTE PATIENT COMMENT** MISC XX (21:10)
[2018-03-23] MEDS: GABAPENTIN 100 MG CAP PO ×3 (09:14→22:01)
[2018-03-23] MEDS: FLUTICASONE PROP 0.05% NASAL SPRAY 16 GM (FLONASE) (09:14)
[2018-03-23] MEDS: busPIRone 5 MG TAB PO ×2 (09:15→22:01)
[2018-03-23] MEDS: SERTRALINE HCL 50 MG TAB PO (09:15)
[2018-03-23] MEDS: CETIRIZINE (ZyrTEC) 10 MG TAB PO (09:15)
[2018-03-23] MEDS: MELOXICAM (MOBIC) 7.5 MG TAB PO ×2 (09:16→22:01)
[2018-03-23] MEDS: LIDOCAINE 5% (LIDODERM) PATCH TD (09:20)
[2018-03-23] MEDS: OLANZapine ORAL DISINTEGRATING TAB 5MG PO ×2 (09:20→18:05)
[2018-03-23] MEDS: **NOTE PATIENT COMMENT** MISC XX (21:00)
[2018-03-23] MEDS: traZODone 100 MG TAB PO (22:01)
[2018-03-24] MEDS: busPIRone 5 MG TAB PO ×2 (08:14→20:49)
[2018-03-24] MEDS: GABAPENTIN 100 MG CAP PO ×3 (08:14→20:49)
[2018-03-24] MEDS: FLUTICASONE PROP 0.05% NASAL SPRAY 16 GM (FLONASE) (08:14)
[2018-03-24] MEDS: MELOXICAM (MOBIC) 7.5 MG TAB PO ×2 (08:15→20:48)
[2018-03-24] MEDS: CETIRIZINE (ZyrTEC) 10 MG TAB PO (08:15)
[2018-03-24] MEDS: hydrOXYzine 25 MG TAB PO ×2 (08:15→20:49)
[2018-03-24] MEDS: SERTRALINE HCL 50 MG TAB PO (08:15)
[2018-03-24] MEDS: MOM 30ML SUSPENSION UDC PO (14:39)
[2018-03-24] MEDS: OLANZapine ORAL DISINTEGRATING TAB 5MG PO (15:27)
[2018-03-24] MEDS: **NOTE PATIENT COMMENT** MISC XX (20:47)
[2018-03-24] MEDS: traZODone 100 MG TAB PO (20:49)
[2018-03-24] MEDS: IBUPROFEN 800 MG TAB PO (20:50)
[2018-03-25] MEDS: GABAPENTIN 100 MG CAP PO (09:29)
[2018-03-25] MEDS: OLANZapine ORAL DISINTEGRATING TAB 5MG PO (09:29)
[2018-03-25] MEDS: busPIRone 5 MG TAB PO (09:29)
[2018-03-25] MEDS: CETIRIZINE (ZyrTEC) 10 MG TAB PO (09:30)
[2018-03-25] MEDS: SERTRALINE HCL 50 MG TAB PO (09:30)
[2018-03-25] MEDS: MELOXICAM (MOBIC) 7.5 MG TAB PO (09:30)
[2018-03-25] MEDS: FLUTICASONE PROP 0.05% NASAL SPRAY 16 GM (FLONASE) (09:30)
== END 2018-03-25 12:20 | disposition home or self-care (01) | DRG 885 ==
LOC: M PSY 21:34
DX: F33.2 Major depressive disorder, recurrent severe without psychotic features (principal); F41.1 Generalized anxiety disorder; F41.0 Panic disorder [episodic paroxysmal anxiety]; R10.9 Unspecified abdominal pain; R42 Dizziness and giddiness; G43.909 Migraine, unspecified, not intractable, without status migrainosus; M25.572 Pain in left ankle and joints of left foot; J30.9 Allergic rhinitis, unspecified; Z91.5 Personal history of self-harm; Z79.899 Other long term (current) drug therapy; Z91.048 Other nonmedicinal substance allergy status; Z88.1 Allergy status to other antibiotic agents; Z88.8 Allergy status to other drugs, medicaments and biological substances

== ENCOUNTER 2018-04-16 20:18 | Emergency (ER) | payer OTHER, BC ==
[2018-04-16 21:48] LABS: KETONE, URINE AUTO RFX NEGATIVE (NEGATIVE); LEUKOCYTE ESTERASE UR AUTO RFX NEGATIVE (NEGATIVE); MUCUS, URINE RFX SMALL (NEGATIVE); NITRITE, URINE AUTO RFX NEGATIVE (NEGATIVE); RBC, URINE AUTO RFX 2 /HPF (0-3); SPECIFIC GRAVITY UR AUTO RFX 1.018 (1.002-1.035); SQUAM EPITHELIAL CELL UR AURFX 1 /HPF (0-6); WBC, URINE AUTO RFX 2 /HPF (0-3)
[2018-04-16] MEDS: GASTROGRAFIN SOLUTION 30ML PO ×2 (22:30→23:00)
[2018-04-16 22:42] LABS: BASO # 0.1 10^3/uL (0.0-0.2); BASO % 0.5 % (0.0-1.0); EOS # 0.4 10^3/uL (0.0-0.50); EOS % 3.1 % (0.0-3.0); HEMATOCRIT 36.5 % (36.0-47.0); HEMOGLOBIN 12.4 g/dl (12.0-15.5); IMMATURE GRANULOCYTE % 0.4 % (0-3.0); LYMPH # 2.5 10^3/uL (1.5-6.5); LYMPH % 22.4 % (24.0-44.0); MEAN CORPUSCULAR HEMOGLOBIN 30.6 pg (27.0-33.0); MEAN CORPUSCULAR VOLUME 90.1 fl (80.0-96.0); MONO # 1.1 10^3/uL (0.0-0.8); MONO % 9.5 % (0.0-5.0); NEUTROPHILS # 7.2 10^3/uL (1.8-7.7); NEUTROPHILS % 64.1 % (36.0-66.0); PLATELET COUNT, AUTOMATED 272 10^3/uL (150-450); RED BLOOD COUNT 4.05 10^6/uL (4.00-5.40); RED CELL DISTRIBUTION WIDTH 12.8 % (11.5-14.5); WHITE BLOOD COUNT 11.2 10^3/uL (4.0-10.0)
[2018-04-16] MEDS: MORPHINE 4 MG/ML 1ML VIAL/SYRINGE (J2270) IV (22:44)
[2018-04-16] MEDS: TRIMETHOBENZAMIDE HCL INJ 200 MG/2 ML VIAL (J3250) IM (22:45)
[2018-04-16] MEDS: NS 1,000 ML IV (22:45)
[2018-04-16 22:52] LABS: INR 0.96; PROTHROMBIN TIME 12.9 SECONDS (12.1-14.4)
[2018-04-16 22:53] LABS: PARTIAL THROMBOPLASTIN TIME 29.7 SECONDS (25.4-37.6)
[2018-04-16 22:55] LABS: D-DIMER QUANT 281.9 ng/ml (<500)
[2018-04-16 23:08] LABS: LACTIC ACID SEPSIS PROTOCOL 0.5 MMOL/L (0.4-2.0)
[2018-04-16 23:08] LABS: ALBUMIN 3.5 GM/DL (3.2-5.2); ALBUMIN/GLOBULIN RATIO 0.92 (1.00-1.93); ALKALINE PHOSPHATASE 69 U/L (45-117); ALT/SGPT 22 U/L (12-78); ANION GAP 7 MEQ/L (8-16); AST/SGOT 21 U/L (7-37); BILIRUBIN,TOTAL 0.3 MG/DL (0.2-1.0); BLOOD UREA NITROGEN 8 MG/DL (7-18); CALCIUM LEVEL 8.3 MG/DL (8.5-10.1); CARBON DIOXIDE LEVEL 27 MEQ/L (21-32); CHLORIDE LEVEL 106 MEQ/L (98-107); GLOMERULAR FILTRATION RATE > 60.0 (>60); GLUCOSE, FASTING 88 MG/DL (70-100); LIPASE 145 U/L (73-393); POTASSIUM SERUM 4.2 MEQ/L (3.5-5.1); SODIUM LEVEL 140 MEQ/L (136-145); TOTAL PROTEIN 7.3 GM/DL (6.4-8.2)
[2018-04-16] MEDS: diphenhydrAMINE INJ 50MG/ML VIAL (J1200) IV (23:45)
[2018-04-16] MEDS ORDERED: ISOVUE-370 76% 100ML VIAL (Q9967) As Ordered (23:48)
[2018-04-17 00:53] LABS: CK-MB VALUE MASS < 1.0 NG/ML (<3.6); CPK CREATINE PHOSPHOKINASE 124 U/L (26-192); TROPONIN I < 0.02 NG/ML (< 0.10)
== END 2018-04-17 01:22 | disposition home or self-care (01) ==
LOC: M ED 04-17 01:22
DX: N83.202 Unspecified ovarian cyst, left side (principal); R10.9 Unspecified abdominal pain; R07.9 Chest pain, unspecified; K92.1 Melena; F32.9 Major depressive disorder, single episode, unspecified; F41.9 Anxiety disorder, unspecified; Z91.5 Personal history of self-harm; M51.9 Unspecified thoracic, thoracolumbar and lumbosacral intervertebral disc disorder; D75.9 Disease of blood and blood-forming organs, unspecified; Z88.8 Allergy status to other drugs, medicaments and biological substances; Z91.048 Other nonmedicinal substance allergy status; Z79.899 Other long term (current) drug therapy
CPT/HCPCS: J2270

== ENCOUNTER → 2018-04-29 | Outpatient (CLI) | payer BC, OTHER | LOC: M RAD 12:01 | DX: N83.202 Unspecified ovarian cyst, left side (principal) | CPT/HCPCS: 76856 ==

== ENCOUNTER → 2018-05-24 | Outpatient (CLI) | payer BC, OTHER | LOC: M RAD 14:49 | DX: N83.202 Unspecified ovarian cyst, left side (principal) | CPT/HCPCS: 76856 ==

== ENCOUNTER 2018-06-12 08:43 | Day surgery (SDC) | payer BC, OTHER ==
[~2018-06-12 08:43] MED LIST changes: -ACETAMINOPHEN TAB 650MG DOSE (2X325MG) PO; -IBUPROFEN 400 MG TAB PO; +LR 1,000 ML IV; -RAMELTEON 8 MG TAB (ROZEREM) PO
[2018-06-12 09:12] LABS: HEMATOCRIT 39.8 % (36.0-47.0); HEMOGLOBIN 13.5 g/dl (12.0-15.5); MEAN CORPUSCULAR HEMOGLOBIN 30.5 pg (27.0-33.0); MEAN CORPUSCULAR HGB CONC 33.9 g/dl (32.0-36.5); PLATELET COUNT, AUTOMATED 254 10^3/uL (150-450); RED BLOOD COUNT 4.42 10^6/uL (4.00-5.40); RED CELL DISTRIBUTION WIDTH 12.2 % (11.5-14.5); WHITE BLOOD COUNT 5.2 10^3/uL (4.0-10.0)
[2018-06-12 09:35] LABS: CONTROL LINE HCG INT CTR LINE PRESENT; HCG, SERUM QUALITATIVE NEGATIVE (NEGATIVE)
[2018-06-12] MEDS ORDERED: ONDANSETRON 4MG/2ML VIAL (J2405) As Ordered ×4 (12:21→15:01)
[2018-06-12] MEDS ORDERED: ROCURONIUM BROMIDE 50 MG/5 ML VIAL As Ordered (12:21)
[2018-06-12] MEDS ORDERED: PROPOFOL 200 MG/20 ML VIAL As Ordered (12:21)
[2018-06-12] MEDS ORDERED: LIDOCAINE 2% INJ 100 MG/5 ML SDV (FOR ANES.) As Ordered (12:21)
[2018-06-12] MEDS ORDERED: fentaNYL 100 MCG/2 ML INJECTION (J3010) As Ordered ×2 (12:22→14:01)
[2018-06-12] MEDS ORDERED: MIDAZOLAM INJ 2 MG/2 ML VIAL (J2250) As Ordered (12:22)
[2018-06-12] MEDS ORDERED: dexameTHASONE 4 MG/ML 1ML VIAL (J1100) As Ordered (13:22)
[2018-06-12] MEDS ORDERED: BUPIVACAINE HCL 0.25% 30 ML VIAL As Ordered (13:40)
[2018-06-12] MEDS ORDERED: KETOROLAC 60 MG/2 ML VIAL (J1885) As Ordered (14:30)
[2018-06-12] MEDS ORDERED: NEOSTIGMINE 10 MG/10 ML VIAL (J2710) As Ordered (14:32)
[2018-06-12] MEDS ORDERED: GLYCOPYRROLATE INJ 0.2 MG/ML 2 ML VIAL As Ordered ×2 (14:32)
[2018-06-12] MEDS ORDERED: HYDROmorphone HCL 2 MG/ML 1ML VIAL (J1170) As Ordered (14:39)
[2018-06-12] MEDS: ONDANSETRON 4MG/2ML VIAL (J2405) IV (15:05)
[2018-06-12] MEDS: PERCOCET 5MG/325MG TAB PO ×2 (15:05→15:34)
[2018-06-12] MEDS: HYDROMORPHONE HCL 0.5 MG/ 0.5 ML SYRINGE (J1170 PER 1) IV ×2 (15:05→15:20)
[2018-06-12] MEDS ORDERED: PERCOCET 5MG/325MG TAB PO (15:15)
[2018-06-12] MEDS ORDERED: LR 1,000 ML IV (15:15)
[2018-06-12] MEDS ORDERED: fentaNYL 100 MCG/2 ML INJECTION (J3010) IV (15:15)
[2018-06-12] MEDS ORDERED: KETOROLAC 30 MG/ML VIAL (J1885) IV (20:30)
== END 2018-06-12 16:54 | disposition home or self-care (01) ==
LOC: M SDC 08:43
DX: N83.202 Unspecified ovarian cyst, left side (principal); N83.201 Unspecified ovarian cyst, right side; M12.9 Arthropathy, unspecified; F41.9 Anxiety disorder, unspecified; F32.9 Major depressive disorder, single episode, unspecified; G43.909 Migraine, unspecified, not intractable, without status migrainosus; R06.83 Snoring; T88.59XD Other complications of anesthesia, subsequent encounter; Z91.048 Other nonmedicinal substance allergy status; Z79.899 Other long term (current) drug therapy; Z86.718 Personal history of other venous thrombosis and embolism; Z87.820 Personal history of traumatic brain injury
CPT/HCPCS: 49322

== ENCOUNTER 2018-07-30 15:57 | Emergency (ER) | payer BC, OTHER | END 2018-07-30 17:03 | disposition left against medical advice (07) | LOC: M ED 15:57 | DX: R07.9 Chest pain, unspecified (principal); Z53.21 Procedure and treatment not carried out due to patient leaving prior to being seen by health care provider ==

== ENCOUNTER → 2018-08-20 | Outpatient (REF) | payer OTHER | LOC: M LAB REF 17:01 | DX: R19.7 Diarrhea, unspecified (principal) | CPT/HCPCS: 87086 ==

== ENCOUNTER 2018-12-08 03:47 | Emergency (ER) | payer BC, OTHER ==
[~2018-12-08] VITALS: Ht 175.3 cm; Wt 88.6 kg
[~2018-12-08 03:47] MED LIST changes: +ALPR0.5T3 PO; +AUGM875T28 PO; +BUSP10TA PO; +BUSP5TA PO; +CETI10CH PO; +CETI10TA PO; +CLON0.5T8 PO; +EXCETAB81 PO; +FLON1SPR; +FLUO40CA PO; +FLUTISP; +GABA-1171 PO; +GABA-845 PO; +HYDR-3363 PO; +IBUP1TAB7 PO; +KETO10TAB PO; -LR 1,000 ML IV; +MAXA10TA14 PO; +MEDR4PAK PO; +MELO7.5T7 PO; +NORCOTAB PO; +OLAN5ZYD PO; +OXYC-517 PO; +PERCOCET PO; +QUET1TAB7 PO; +RIZA10TA4 PO; +SERT-138 PO; +TIGA300C2 PO; +TRAZ10TA PO; +TRAZ1TAB14 PO; +VITA125C2 PO; +VITMTA PO; +ZOLO100T PO
[2018-12-08] MEDS ORDERED: SERT-138 PO (03:58)
[2018-12-08] MEDS ORDERED: IBUPROFEN 800 MG TAB PO ONE (07:30)
[2018-12-08] MEDS ORDERED: oxyCODONE 5MG TAB PO ONE (08:30)
[2018-12-08] MEDS ORDERED: IBUP80TA PO (09:16)
[2018-12-08] MEDS ORDERED: TYLE500T78 PO (09:16)
--- NOTE | 2018-12-08 09:19 | REP ---
Right hand four views : There is no fracture or dislocation. Mineralization and joint spaces are normal. There are no calcifications or foreign bodies. Impression: Negative right hand . Electronically Signed by Hardik Wetzel MD 12/08/2018 09:11 A
[2018-12-08 09:33] VITALS: BP 133/63
== END 2018-12-08 09:35 | disposition home or self-care (01) ==
LOC: M ED 03:47
DX: M25.541 Pain in joints of right hand (principal); M25.531 Pain in right wrist; R93.7 Abnormal findings on diagnostic imaging of other parts of musculoskeletal system; W22.09XA Striking against other stationary object, initial encounter; Y92.511 Restaurant or cafe as the place of occurrence of the external cause; G43.909 Migraine, unspecified, not intractable, without status migrainosus; F32.9 Major depressive disorder, single episode, unspecified; F41.9 Anxiety disorder, unspecified; M51.9 Unspecified thoracic, thoracolumbar and lumbosacral intervertebral disc disorder; Z91.048 Other nonmedicinal substance allergy status; Z88.8 Allergy status to other drugs, medicaments and biological substances; Z79.899 Other long term (current) drug therapy